=== PATIENT | male | born 1960 | race African-American/Black ===

== ENCOUNTER 2016-10-05 09:55 | Day surgery (SDC) | payer OTHER ==
[2016-10-04 12:01] VITALS: BMI 24.7
[~2016-10-05] VITALS: Ht 177.8 cm; Wt 78.6 kg
[2016-10-05] VITALS (13 sets, daily range): BP systolic 118–144; BP diastolic 76–105; PULSE 57–70; RESP 15–43; Ht 177.8 cm; Wt 78.6 kg
[~2016-10-05 09:55] MED LIST: AMLO1CAP15 PO; ASPI-664 PO; ATOR80TA75 PO; CEFU500T45 PO; CLOP75TA27 PO; FER325 PO; FURO20TA3 PO; HYDR-3605 PO; ISOS30TA5 PO; Lipitor PO; METO-407 PO; NIT4 SL; OMEP20CA16 PO; ONDA8TAB83 PO; SITA100T8 PO; VIT D3 PO
[2016-10-05] MEDS ORDERED: CIPROFLOXACIN 400MG/D5W 200 ML IVPB ONE (11:00)
[2016-10-05] MEDS ORDERED: AMLO1CAP2 PO (11:48)
--- NOTE | 2016-10-05 12:16 | HPN ---
Date/Time of Note Date/Time of Note DATE: 10/05/16 TIME: 12:15 Interval H&P Admission Note Pt. seen H&P reviewed: No system changes MARTY LAMAS MD Oct 05, 2016 12:16
[2016-10-05] MEDS ORDERED: MIDAZOLAM 1 MG/ML 2 ML INJ ONE (12:40)
[2016-10-05] MEDS ORDERED: ROCURONIUM 50 MG INJ ONE (12:40)
[2016-10-05] MEDS ORDERED: PROPOFOL 20 ML ONE (12:40)
[2016-10-05] MEDS ORDERED: FENTAnyl 50 MCG/ML VIAL ONE (12:40)
[2016-10-05] MEDS ORDERED: PHENYLephrine (100 MCG/ML) 5ML SYG ONE (13:36)
[2016-10-05] MEDS ORDERED: ONDANSETRON 4 MG INJ IV PRN ×2 (14:00→14:30)
[2016-10-05] MEDS ORDERED: HYDROCODONE/APAP (5/325) TAB PO PRN (14:00)
[2016-10-05] MEDS ORDERED: FAMOTIDINE 20 MG INJ ONE (14:16)
[2016-10-05] MEDS ORDERED: ONDANSETRON 4 MG INJ ONE (14:16)
[2016-10-05] MEDS ORDERED: DEXAMETHASONE 4 MG/ML 1 ML INJ ONE (14:16)
[2016-10-05] MEDS ORDERED: SUGAMMADEX SODIUM 200 MG/2 ML VIAL IV ONE ×2 (14:21)
[2016-10-05] MEDS ORDERED: MEPERIDINE 25 MG INJ IV PRN (14:30)
[2016-10-05] MEDS ORDERED: DIPHENHYDRAMINE 50 MG INJ IV PRN (14:30)
[2016-10-05] MEDS ORDERED: HYDROmorphONE (0.2 MG/ML) 10ML SYG IV PRN (14:30)
[2016-10-05] MEDS: HYDROmorphONE (0.2 MG/ML) 10ML SYG IV PRN ×2 (15:16→15:31)
--- NOTE | 2016-10-05 21:57 | OPR ---
DATE OF OPERATION: 10/05/2016 PREOPERATIVE DIAGNOSIS: Multiple right renal stones. POSTOPERATIVE DIAGNOSIS: Multiple right renal stones. OPERATION PERFORMED: Cystoscopy, insertion of right ureteral JJ stent and right extracorporeal shoc kwave lithotripsy. TECHNIQUE: The patient was brought to the operating room, positioned in the supine position on the lithotripsy machine table and he was then given general endotracheal anesthesia. A timeout was done . The patient was identified by his name, date, and the procedure and the side of the procedu re. The patient was given 2 grams of Ancef IV at the start of the procedure. Then, the patient was positioned in the lithotomy position. The genital area was prepped and draped in the usual sterile manner. A #21 Chadian cystoscope sheath was introduced under direct vision through the penile ureth ra all the way to the bladder. Urine was collected from the bladder for culture and sensitivity. T hen, the right ureteral orifice was identified and cannulated with a 5-Chadian open-ended ureteral ca theter and a Glidewire was passed all the way up to the kidney. Once the Glidewire was in the kidne y, the open-ended was removed and on the Glidewire, I advanced a 6-Chadian x 24 cm long JJ stent, had its proximal end curling into the kidney and the distal end curling into the bladder. Then the sco pe was removed and I inserted a 16-Chadian Crocker catheter and connected it to a drainage bag. Then, the patient was repositioned in the supine position and the large right renal stone which measured a bout 12 x 15 mm was localized on both screens of the lithotripsy machine and the shock waves were st arted at 3 volt and then gradually increased to 7 and the position of the stone was rechecked regula rly and make sure to aim at the stone. The stone appeared to be breaking well and there was also an other small stone next to it which we also treated. The patient received a total of 2400 shocks and the stone at the end seems to have broken well and scattered around the renal pelvis and the lower pole. At the end of the procedure, the patient was stable and he was transferred to recovery room i n stable and satisfactory condition. Dictated By: MARTY HENDERSON/WARREN Conf#: [id number] DID#: [id number] CC: MARTY LAMAS MD;*[facility]*
--- NOTE | 2016-10-06 10:54 | RADRPT ---
PROCEDURE: Fluoroscopy CLINICAL INDICATION: XR Cystogram in Surgery TECHNIQUE: 102.7 seconds fluoroscopic time utilized by Dr. LAMAS for procedure. 7 images/sequences of are submitted. COMPARISON: None FINDINGS: Placement of right-sided ureteral stent is demonstrated. Multiple stones are seen in the right kidn ey. IMPRESSION: Fluoroscopy utilized by Dr. LAMAS for placement of right ureteral stent. Please see procedural report for complete details. RPTAT: QQ .Rakesh Alexandre MD, MD Date Time Electronically viewed and signed by .Rakesh Alexandre MD, MD on 10/06/2016 10:54 .L/
--- NOTE | 2016-10-06 10:55 | RADRPT ---
PROCEDURE: XR Abdomen. CLINICAL INDICATION: Post ESWL. TECHNIQUE: AP abdomen x-ray. COMPARISON: None. FINDINGS: There is a right-sided ureteral stent in place. There are bilateral multiple renal calculi seen moiz suring up to 1.4 cm at the left upper pole. The bowel gas pattern is unremarkable.. The osseous st ructures are unremarkable. IMPRESSION: Right-sided ureteral stent in place. Bilateral nephrolithiasis. RPTAT: QQ .Rakesh Alexandre MD, Date Time Electronically viewed and signed by .Rakesh Alexandre MD, MD on 10/06/2016 10:55 .L/
== END 2016-10-05 16:30 | disposition home or self-care (01) ==
LOC: SDS 09:55
PROVIDERS: ATTEND Urology
DX: N20.0 Calculus of kidney (principal); I25.10 Atherosclerotic heart disease of native coronary artery without angina pectoris; Z86.718 Personal history of other venous thrombosis and embolism
CPT/HCPCS: 52356; 74000; 74430; 82962; 87086; C2617; J0744; J1100; J1170; J2175; J2250; J2370; J2405; J3010; Z7512; Z7610

== ENCOUNTER 2016-12-14 11:11 | Day surgery (SDC) | payer OTHER ==
[2016-12-13 14:20] VITALS: BMI 25.3
[2016-12-14] VITALS (18 sets, daily range): BP systolic 113–158; BP diastolic 73–94; PULSE 63–82; RESP 10–25; Ht 177.8 cm; Wt 72.0 kg
[~2016-12-14] VITALS: Ht 177.8 cm; Wt 72.0 kg
[~2016-12-14 11:11] MED LIST changes: -AMLO1CAP15 PO; +AMLO1CAP2 PO; -CEFU500T45 PO; +CIPROFLOXACIN 400 MG in D5W 200 ML IVPB SCH; -CLOP75TA27 PO; -FER325 PO; -FURO20TA3 PO; -Lipitor PO; -ONDA8TAB83 PO
[2016-12-14] MEDS ORDERED: FENTAnyl 50 MCG/ML VIAL ONE (12:16)
[2016-12-14] MEDS ORDERED: MIDAZOLAM 1 MG/ML 2 ML INJ ONE (12:16)
[2016-12-14] MEDS ORDERED: ONDANSETRON 4 MG INJ IV PRN (12:30)
[2016-12-14] MEDS ORDERED: hydrALAzine 20 MG INJ IV PRN (12:30)
[2016-12-14] MEDS ORDERED: METOCLOPRAMIDE 10 MG INJ IV PRN (12:30)
[2016-12-14] MEDS ORDERED: FENTAnyl 50 MCG/ML VIAL IV PRN ×2 (12:30)
[2016-12-14] MEDS ORDERED: HYDROmorphONE (0.2 MG/ML) 10ML SYG IV PRN ×2 (12:30)
[2016-12-14] MEDS ORDERED: LABETALOL HCL 20MG INJ IV PRN (12:30)
[2016-12-14] MEDS ORDERED: LISI20TA11 PO (12:42)
[2016-12-14] MEDS ORDERED: FURO20TA3 PO (12:42)
--- NOTE | 2016-12-14 12:46 | HPN ---
Date/Time of Note Date/Time of Note DATE: 12/14/16 TIME: 12:46 Interval H&P Admission Note Pt. seen H&P reviewed: No system changes MARTY LAMAS MD Dec 14, 2016 12:46
[2016-12-14] MEDS ORDERED: DEXAMETHASONE 4 MG/ML 1 ML INJ ONE (12:59)
[2016-12-14] MEDS ORDERED: PROPOFOL 20 ML ONE (12:59)
[2016-12-14] MEDS ORDERED: ACETAMINOPHEN 1000MG/100ML IV 100 ML ONE (12:59)
[2016-12-14] MEDS ORDERED: ONDANSETRON 4 MG INJ ONE (12:59)
[2016-12-14] MEDS ORDERED: METOCLOPRAMIDE 10 MG INJ ONE (13:00)
[2016-12-14] MEDS ORDERED: CA CHLORIDE 10% 10 ML SYRINGE ONE (13:06)
[2016-12-14] MEDS ORDERED: POTASSIUM CHLORIDE 50 ML ONE (13:14)
[2016-12-14] MEDS ORDERED: morphine 10 MG INJ ONE (14:06)
[2016-12-14] MEDS ORDERED: FAMOTIDINE 20 MG INJ ONE (14:06)
[2016-12-14] MEDS ORDERED: MEPERIDINE 100 MG INJ ONE (14:13)
--- NOTE | 2016-12-14 14:49 | OPR ---
Date/Time of Note Date/Time of Note DATE: 12/14/16 TIME: 14:37 Operative Report Procedure Date: Dec 14, 2016 Preoperative Diagnosis Left renal stones, status post ESWL to right kidney stones and insertion of right ureteral JJ stent Postoperative Diagnosis Left renal stones, status post ESWL to right kidney stones and insertion of right ureteral JJ stent ,the right ureteral JJ stent was calcified over the proximal curl requiring extracorporeal shockwave lithotripsy to be able to remove it Operation Performed Cystoscopy, extracorporeal shockwave lithotripsy to the proximal curl of the right ureteral JJ stent then removal and replacement of the right ureteral JJ stent size 6 Faroese by 24 cm long Surgeon: MARTY LAMAS MD Anesthesia Type: general Anesthesiologist: ROBERT TOLLIVER CRNA Estimated Blood Loss: 0 - 10 ml's Specimens Right ureteral JJ stent Pt Condition Post Procedure: stable Indications Left renal stones, status post ESWL to right kidney stones and insertion of right ureteral JJ stent Operative\Procedure Findings Cystoscopy, extracorporeal shockwave lithotripsy to the proximal curl of the right ureteral JJ stent then removal and replacement of the right ureteral JJ stent size 6 Faroese by 24 cm long Procedure Description The patient was brought to the operating room and given general anesthesia. He was given 400 mg of Cipro IV at the start of the procedure. Patient was positioned in the lithotomy position. The genital area was prepped and draped in the usual sterile manner. Timeout was done the patient was identified by his name the procedure and his birthdate. #21 Faroese cystoscope sheath was introduced under direct vision through the penile urethra all the way to the bladder. Fluoroscopy was then done and the distal curl of the right ureteral JJ stent was grasped with the grasper and under fluoroscopy was pulled on it and to try to pull it out however the proximal curl that was in the kidney would not uncover and as the stent came in the upper ureter it would not uncurl and therefore would not be able to pull it out. The distal curl however was able to be brought out to the urethral meatus. I tried to passing a zip wire into the lumen of the JJ stent but it would not go in because the lumen of the stent itself is also calcified. I did cut the distal curl and then try to pass the zip wire again through the lumen and that would not advance what I was hoping if I could pass the a zip wire all the way in I could make the stent straight in the proximal cur. However since that was not successful then I decided to do extracorporeal shockwave lithotripsy to the proximal curl in the upper ureter. We did do the ESWL and as we progressed I did hold the distal end of the stent and pulled on it and then it came out intact. I then repeated the cystoscopy and there was some bleeding from the right ureter and I I did pass a Glidewire into the right ureter did go up but in the proximal part it was bouncing back ,I then advanced the open ended on the Glidewire and was able to get the Glidewire all the way up to the kidney therefore I decided to put a new JJ stent to make sure that the kidney drains well and no stone fragments block the ureter. I removed the open ended and on the Glidewire I passed a 6 Faroese by 24 cm long JJ stent had its proximal and curling into the kidney and the distal end curling into the bladder the distal end is connected to a string that was taped on the penis was 2 pieces of Tegaderm patient tolerated the procedure well and was transferred to recovery room in stable and satisfactory condition I did not do any procedure on the left side considering as to what is happening on the right side we will have to try that another day or consider doing a percutaneous nephrostolithotomy I will discuss that with the patient when he comes to the office later on. MARTY LAMAS MD Dec 14, 2016 14:49
[2016-12-14] MEDS ORDERED: HYDROCODONE/APAP (5/325) TAB PO PRN (15:00)
--- NOTE | 2016-12-14 20:27 | RADRPT ---
PROCEDURE: X-ray fluoroscopy guidance CLINICAL INDICATION: ESWL. TECHNIQUE: Fluoroscopic guidance was utilized for an intraoperative procedure. Fluoro time: 250.4 seconds Number of images/sequences: 3 COMPARISON: None available FINDINGS: Right ureteral stent was placed. The osseous structures are normal. The visualized bowel pattern i s normal. No other abnormality is identified. IMPRESSION: 1. X-ray fluoroscopic guidance utilized for intraoperative procedure. 2. Right ureteral stent placed. RPTAT: HMJB .Gustavo Lam MD, Date Time Electronically viewed and signed by .Gustavo Lam MD, on 12/14/2016 20:27 .B/
== END 2016-12-14 17:07 | disposition home or self-care (01) ==
LOC: SDS 11:11
PROVIDERS: ATTEND Urology
DX: N20.0 Calculus of kidney (principal); T83.193A Other mechanical complication of other urinary stent, initial encounter; I25.10 Atherosclerotic heart disease of native coronary artery without angina pectoris; I10 Essential (primary) hypertension; Y83.9 Surgical procedure, unspecified as the cause of abnormal reaction of the patient, or of later complication, without mention of misadventure at the time of the procedure
CPT/HCPCS: 50590; 52332; 74430; 82962; 87086; 88300; C2617; J0131; J1100; J1170; J2175; J2250; J2270; J2405; J2765; J3010; J3480; Z7512; Z7610

== ENCOUNTER 2017-02-15 10:29 | Inpatient (IN) | payer OTHER ==
[~2017-02-15] VITALS: Ht 177.8 cm; Wt 73.6 kg
[2017-02-15] VITALS (18 sets, daily range): BP systolic 106–141; BP diastolic 69–89; PULSE 58–72; RESP 12–24; Ht 177.8 cm; Wt 73.6 kg
[~2017-02-15 10:29] MED LIST changes: -CIPROFLOXACIN 400 MG in D5W 200 ML IVPB SCH; +FURO20TA3 PO; +LISI20TA11 PO
[2017-02-15] MEDS ORDERED: CEFTRIAXONE 1 GM/NS 50 ML IVPB ONE (10:30)
[2017-02-15] MEDS ORDERED: METO-336 PO (11:18)
[2017-02-15] MEDS ORDERED: HYDR-902 PO (11:19)
[2017-02-15] MEDS ORDERED: CLOP75TA27 PO (11:20)
[2017-02-15] MEDS ORDERED: AMLO1CAP15 PO (11:21)
[2017-02-15] MEDS ORDERED: CHOL500010 PO (11:21)
[2017-02-15] MEDS ORDERED: IOHEXOL 300MG/ML 30 ML BTL ONE ×2 (12:23→14:32)
--- NOTE | 2017-02-15 12:27 | HPN ---
Date/Time of Note Date/Time of Note DATE: 02/15/17 TIME: 12:26 Interval H&P Admission Note Pt. seen H&P reviewed: No system changes MARTY LAMAS MD Feb 15, 2017 12:27
[2017-02-15] MEDS ORDERED: MIDAZOLAM 1 MG/ML 2 ML INJ ONE (12:30)
[2017-02-15] MEDS ORDERED: morphine SULFATE/PF (10 MG/10 ML) INJ ONE (12:30)
[2017-02-15] MEDS ORDERED: PROPOFOL 20 ML ONE (12:30)
[2017-02-15] MEDS ORDERED: FENTAnyl 50 MCG/ML VIAL ONE (12:34)
[2017-02-15] MEDS ORDERED: LIDOCAINE 1% (MDV) 20 ML INJ ONE (12:34)
--- NOTE | 2017-02-15 15:23 | RADRPT ---
PROCEDURE: Intraoperative imaging of the abdomen and pelvis with fluoroscopy. CLINICAL INDICATION: Left renal calculi. Flank pain. Intraoperative. TECHNIQUE: 15 images of the abdomen and pelvis were obtained in the operating room with an image i ntensifier. No radiologist was in attendance. 55.7 seconds of fluoroscopy time was used. COMPARISON: Abdomen radiograph dated 10/05/2016. FINDINGS: Images demonstrate placement of a balloon-tip catheter in the ureter with the balloon inflated in th e proximal left ureter just inferior to the left ureteropelvic junction. Contrast was injected into the left intrarenal collecting system. There are calculi in the upper and lower pole calyces. IMPRESSION: 1. Satisfactory intraoperative imaging of the abdomen and pelvis. 2. Images demonstrate placement of a balloon-tip catheter in the ureter with the balloon inflated i n the proximal left ureter. RPTAT: QQ .Amadou Aranda MD, Date Time Electronically viewed and signed by .Amadou Aranda MD, on 02/15/2017 15:23 .R/
[2017-02-15] MEDS ORDERED: ONDANSETRON 4 MG INJ ONE (16:31)
[2017-02-15] MEDS ORDERED: FAMOTIDINE 20 MG INJ ONE (16:31)
[2017-02-15] MEDS ORDERED: SUGAMMADEX SODIUM 200 MG/2 ML VIAL IV ONE (16:43)
--- NOTE | 2017-02-15 17:09 | RADRPT ---
PROCEDURE: Intraoperative left renal percutaneous access for placement of 30-Bruneian sheath, left n ephrostogram, and left nephrostomy tube placement. CLINICAL INDICATION: Left kidney stones. Left flank pain. TECHNIQUE: Prior to the procedure, informed consent was obtained from the patient. Risks including bleeding an d infection were explained to the patient. The patient understood and was willing to proceed. A pr ocedural pause was performed. The patient's name, date of , and procedure to be performed were verified. Prior to the procedure, Dr. Castro inserted a retrograde left ureteral catheter with a balloon tip just below the left ureteropelvic junction. The balloon was inflated and contrast was infused into the catheter in a retrograde fashion such that the left renal pelvis and collecting system were dist ended. Using fluoroscopic guidance, a 6-Bruneian Yueh needle was advanced into the left lower pole calyx. Th e tip was confirmed to be in position with fluoroscopic guidance. The inner cannula was removed celia ving the plastic sheath in position. A guidewire was advanced through the plastic sheath into the l eft renal pelvis. Using fluoroscopic guidance, the guidewire was advanced through the left ureteral pelvic junction into the left ureter. Following this, the Yueh catheter was removed leaving the michael dewire in position. The dual-lumen catheter was advanced over the guidewire into the ureter. A sec ond safety 0.035-inch Amplatz guide wire was then advanced through the dual-lumen catheter into the ureter such that two guidewires were present in the left ureter. The dual-lumen catheter was remove d and the Amplatz guidewire was then used for dilatation. A 10 mm renal dilation balloon was then a dvanced over the Amplatz guidewire such that the tip was present in the renal pelvis. The balloon was inflated to 12 atmospheres under fluoroscopic guidance. The 30 Bruneian sheath was then advanced over the balloon into the renal pelvis. The balloon dilator was then deflated and removed leaving t he sheath in place within the renal pelvis. Dr. Castro then inserted the rigid nephroscope, which then confirmed the position of the sheath within the renal pelvis. Dr. Castro then performed the percutaneous nephrolithotomy. Following the nephrolithotomy, a 24 Bruneian Malecot nephrostomy tube was inserted as follows: The sh eath was removed leaving the guidewires in place. The 24 Bruneian Malecot catheter was advanced over the Amplatz guidewire such that the tip was in satisfactory position within the renal pelvis. The M alecot catheter also had a 7-Bruneian ureteral catheter which was advanced such that the tip was in th e mid portion of the left ureter as a stent. The guidewires were then removed. The catheter was se cured to the patient's skin with 2-0 monofilament. The position was confirmed with a nephrostogram with 30 ml of iodinated contrast injected though the Malecot catheter. The nephrostogram demonstrates the tube in good position. A total of 211 seconds of fluoroscopy time was used. COMPARISON: Intraoperative imaging done earlier the same day. FINDINGS: The initial images demonstrate the balloon-tip catheter in the proximal left ureter. Subsequent imag es demonstrate puncture of the left lower pole lakhwinder and 2 guide wires in the left ureter. Subsequen t images demonstrate inflation of the dilation balloon and placement of the sheath and the left lowe r pole lakhwinder. The final nephrostogram images demonstrate the nephrostomy tube in satisfactory positi on. IMPRESSION: 1. Satisfactory renal access and placement of 30-Bruneian sheath in the lower pole lakhwinder of the left kidney. 2. Subsequent placement of nephrostomy tube in the left kidney. 3. Nephrostogram demonstrates the left nephrostomy tube in satisfactory position. RPTAT: QQ .Amadou Aranda MD, MD Date Time Electronically viewed and signed by .Amadou Aranda MD, MD on 02/15/2017 17:08 .R/
[2017-02-15] MEDS ORDERED: HYDROmorphONE 0.5 MG/0.5 ML SYG IV PRN (17:30)
[2017-02-15] MEDS ORDERED: ONDANSETRON 4 MG INJ IV PRN ×2 (17:30)
[2017-02-15] MEDS ORDERED: ZOLPIDEM 5 MG TAB PO PRN (17:30)
[2017-02-15] MEDS ORDERED: DIPHENHYDRAMINE 50 MG INJ IV PRN (17:30)
[2017-02-15] MEDS ORDERED: NALBUPHINE HCL (10 MG/1 ML) INJ IV PRN (17:30)
[2017-02-15] MEDS ORDERED: TRIMETHOBENZAMIDE 100 MG/ML VIAL IM PRN (17:30)
[2017-02-15] MEDS ORDERED: NALOXONE (0.4 MG/ML) INJ IV PRN (17:30)
--- NOTE | 2017-02-15 17:49 | OPR ---
Date/Time of Note Date/Time of Note DATE: 02/15/17 TIME: 17:35 Operative Report Procedure Date: Feb 15, 2017 Preoperative Diagnosis Left renal stones Postoperative Diagnosis Left renal stones Operation/Procedure Performed Cystoscopy and insertion of left ureteral catheter was an occluding balloon, left percutaneous nephrostolithotomy. established the access, and the placement of the nephrostomy tube at the end. Dr. LAMAS did the percutaneous nephrostolithotomy and the cystoscopy Surgeon see signature line Air Conditioning Technician None Anesthesia Type: general Anesthesiologist: ALEX CAMACHO DO Estimated Blood Loss: 250 - 300 ml's Transfusion none Specimen Left kidney stone fragments Grafts/Implants none Tubes/Drains Left nephrostomy tube, Crocker catheter Complications none Pt Condition Post Procedure: stable Disposition: PACU Indications Multiple left renal stones Procedure Description The patient was brought to the operating room and given general anesthesia after he was given spinal anesthesia with Duramorph. Timeout was done, the patient was identified by his name, birthdate ,the procedure and the side of the procedure. The patient was then given 1 g of ceftriaxone IV. The patient was positioned in the lithotomy position. The genital area was prepped and draped in the usual sterile manner. #21 Italian cystoscope sheath was introduced under direct vision through the penile urethra all the way to the bladder. The left ureteral orifice was identified and then cannulated with the 5 Italian ureteral catheter and under fluoroscopy the catheter was advanced up to the left kidney.A retrograde pyelogram was done and the collecting system on the left side was visualized. The tip of the ureteral catheter was then brought down to below the ureteropelvic junction and the occluding balloon was inflated with 1.2 mL of contrast material. The patient then had a Crocker catheter inserted and the ureteral catheter taped onto it so it would not slide down. Then the patient was moved to the stretcher and then put back on the operating table but this time in a prone position. He was padded to make sure no compression on any vital part of his body. The back was then prepped and draped for the percutaneous nephrostolithotomy. At that time came in and did the access for the procedure. He will dictate that part of the procedure. Then I proceeded and did the nephroscopy, there was some bleeding initially but eventually I was able to direct the scope to were the upper pole of the kidney and I was able to see the larger stone in the upper pole calyx. Then the stone was broken and suctionned and I kept doing the same till the upper pole stones were all removed then I turned the scope down toward the lower pole and I was able to reach the lower pole calyx, visualize the stone and break it and remove the stone fragments as well. The patient still had 2 small stones were the upper pole of the kidney in different calyces. At that moment came back and inserted the nephrostomy tube and he will also dictate that part. The patient was then moved onto the stretcher and transferred to the recovery room in a stable and satisfactory condition. MARTY LAMAS MD Feb 15, 2017 17:49
--- NOTE | 2017-02-15 18:14 | CONS ---
Date/Time of Note Date/Time of Note DATE: 02/15/17 TIME: 18:13 Assessment/Plan Assessment/Plan Additional Assessment/Plan 56 yo M with pmhx CAD, HTN, DM, kidney stones admitted for overnight monitoring following an elective cysto with L perc nephrostomy tube for kidney stones, hospitalist service consulted for medical management #CAD sp stent >12 mos ago: cont asa, hold plavix until ok'd by #DM1: SSI, a1c. hold home PO meds #HTN: cont home meds #misc: cont home vitamin D hospitalist service will cont to follow Consultation Date/Type/Reason Admit Date/Time Feb 15, 2017 at 10:29 Type of Consultation: hospitalist Reason for Consultation medical management Referring Provider: MARTY LAMAS MD Hx of Present Illness 56 yo M with pmhx CAD, DM, HTN, kidney stones admitted for observation following elective cysto with L perc nephrostomy done earlier this evening. Hospitalist service consulted for medical management. Pt seen while still in the PACU. He was still quite sleepy from his surgery and thus all clinical info obtained from chart. PMhx as above Unable to obtain soc hx, fam hx, ros, meds, all from pt 2/2 clinical condition Past Medical History per chart cardiac stent 4.16, DVT 3.16 Social History Smoking Status: Light tobacco smoker Exam/Review of Systems Vital Signs Vitals Vital Signs Date Time Temp Pulse Resp B/P Pulse Ox O2 Delivery O2 Flow Rate FiO2 02/15/17 17:32 68 18 110/73 100 Room Air 02/15/17 17:07 98.0 Exam laying in bed, nad MMM no mrg lungs clear abd soft rivas and L nephrostomy tube both with blood tinged output no rashes no edema accucheck prior to surgery 100 Results Results 24 hrs Laboratory Tests Test 02/15/17 12:18 Bedside Glucose 100 Medications Medications Current Medications Naloxone HCl (Narcan) 0.1 mg Q2M PRN IV FOR RESP RATE 8 OR LESS; Start at 17:30; Stop 02/16/17 at 17:29 Hydromorphone HCl (Dilaudid) 0.2 mg Q3H PRN IV PAIN LEVEL 1-5; Start 02/15/17 at 17:30; Stop 02/16/17 at 17:29 Hydromorphone HCl (Dilaudid) 0.4 mg Q3H PRN IV PAIN LEVEL 6-10; Start at 17:30; Stop 02/16/17 at 17:29 Diphenhydramine HCl (Benadryl) 25 mg Q6H PRN IV ITCHING; Start 02/15/17 at 17: 30; Stop 02/16/17 at 17:29 Nalbuphine HCl (Nubain) 5 mg ONCE PRN IV ITCHING; Start 02/15/17 at 17:30; Stop 02/16/17 at 17:29 Ondansetron HCl (Zofran Inj) 4 mg Q6H PRN IV NAUSEA AND/OR VOMITING; Start at 17:30; Stop 02/16/17 at 17:29 Trimethobenzamide HCl (Tigan) 200 mg Q6H PRN IM NAUSEA AND/OR VOMITING; Start 02/15/17 at 17:30; Stop 02/16/17 at 17:29 Ondansetron HCl 4 mg 4 mg Q6H PRN IV NAUSEA; Start 02/15/17 at 17:30 Ceftriaxone Sodium 50 ml @ 100 mls/hr Q24H IVPB ; Start 02/16/17 at 12:00 Sodium Chloride (1/2 NS) 1,000 ml @ 125 mls/hr Q8H IV ; Start 02/15/17 at 17: 30 Aspirin (Halfprin) 81 mg DAILY PO ; Start 02/16/17 at 09:00 Atorvastatin Calcium (Lipitor) 80 mg QHS PO ; Start 02/15/17 at 21:00 Cholecalciferol (Vitamin D) 5,000 unit DAILY PO ; Start 02/16/17 at 09:00 Clopidogrel Bisulfate (plaVIX) 75 mg DAILY PO ; Start 02/16/17 at 09:00 Furosemide (Lasix) 20 mg DAILY PO ; Start 02/16/17 at 09:00 Acetaminophen/ Hydrocodone Bitart ([place] (10/325)) 1 tab Q6 PRN PO PAIN; Start 02/15/17 at 18:00 Isosorbide Mononitrate (Imdur) 30 mg DAILY PO ; Start 02/16/17 at 09:00 Metoprolol Succinate (Toprol Xl) 100 mg BID PO ; Start 02/15/17 at 21:00 Amlodipine Besylate (Norvasc) 10 mg QHS PO ; Start 02/15/17 at 21:00 Benazepril HCl (Lotensin) 40 mg QHS PO ; Start 02/15/17 at 21:00 MANUEL ALFARO MD Feb 15, 2017 18:14
[2017-02-15] MEDS ORDERED: GLUCOSE GEL 15 GRAM TUBE BUCCAL PRN (19:00)
[2017-02-15] MEDS ORDERED: GLUCOSE GEL 15 GRAM TUBE PO PRN ×2 (19:00)
[2017-02-15] MEDS ORDERED: DEXTROSE 50% 50 ML SYRINGE IV PRN ×2 (19:00)
[2017-02-15] MEDS ORDERED: GLUCAGON 1 MG INJ IM PRN (19:00)
[2017-02-15] MEDS: SOD CHLORIDE 0.45% 1,000 ML IV SCH (20:18)
[2017-02-15] MEDS: INSULIN ASPART [NOVOLOG] 3 ML PEN SC SCH (21:00)
[2017-02-15] MEDS: AMLODIPINE 10 MG TAB PO SCH (21:00)
[2017-02-15] MEDS: HYDROmorphONE 0.5 MG/0.5 ML SYG IV PRN (22:12)
[2017-02-15] MEDS: ATORVASTATIN 80 MG TAB PO SCH (22:12)
[2017-02-15] MEDS: BENAZEPRIL 40 MG TAB PO SCH (22:14)
[2017-02-15] MEDS: HYDROCODONE/APAP (10/325) TAB PO PRN (23:53)
[2017-02-16] MEDS: METOPROLOL (XL) 100 MG TAB PO SCH ×3 (00:23→20:34)
[2017-02-16 00:52] LABS: ABNORMAL IP MESSAGE 1; BASOPHIL # 0.1 10^3/ul (0.0-0.1); BASOPHILS % 0.3 % (0.0-2.0); HEMATOCRIT 35.5 % (42.0-52.0); HEMOGLOBIN 11.6 g/dl (14.0-18.0); LYMPHOCYTES # 0.5 10^3/ul (0.8-2.9); LYMPHOCYTES % 3.7 % (15.0-51.0); MEAN CORPUSCULAR HEMOGLOBIN 30.4 pg (29.0-33.0); MEAN CORPUSCULAR HGB CONC 32.7 g/dl (32.0-37.0); MEAN CORPUSCULAR VOLUME 92.9 fl (82.0-101.0); MEAN PLATELET VOLUME 11.6 fl (7.4-10.4); MONOCYTE # 0.5 10^3/ul (0.3-0.9); MONOCYTES % 3.5 % (0.0-11.0); NEUTROPHIL # 13.4 10^3/ul (1.6-7.5); NEUTROPHILS % 92.1 % (39.0-77.0); PLATELET COUNT 210 10^3/UL (140-415); POSITIVE DIFF @See below; RED BLOOD COUNT 3.82 10^6/ul (4.70-6.10); RED CELL DISTRIBUTION WIDTH 14.4 % (11.5-14.5); WHITE BLOOD COUNT 14.5 10^3/ul (4.8-10.8)
[2017-02-16 01:26] LABS: CALCIUM 8.4 mg/dl (8.4-10.2); CREATININE 1.34 mg/dl (0.61-1.24); POTASSIUM 3.3 mmol/L (3.5-5.1)
[2017-02-16] MEDS: SOD CHLORIDE 0.45% 1,000 ML IV SCH ×6 (01:30→22:21)
[2017-02-16] MEDS: ACCU-CHEK XX SCH (02:00)
[2017-02-16] MEDS ORDERED: ACCU-CHEK XX SCH (02:00)
[2017-02-16] MEDS: HYDROmorphONE 0.5 MG/0.5 ML SYG IV PRN ×3 (04:24→12:52)
[2017-02-16] MEDS: HYDROCODONE/APAP (10/325) TAB PO PRN ×2 (06:08→16:53)
[2017-02-16 06:27] LABS: ABNORMAL IP MESSAGE 1; BASOPHILS % 0.2 % (0.0-2.0); HEMATOCRIT 33.8 % (42.0-52.0); HEMOGLOBIN 10.6 g/dl (14.0-18.0); LYMPHOCYTES # 0.6 10^3/ul (0.8-2.9); LYMPHOCYTES % 4.6 % (15.0-51.0); MEAN CORPUSCULAR HEMOGLOBIN 28.9 pg (29.0-33.0); MEAN CORPUSCULAR HGB CONC 31.4 g/dl (32.0-37.0); MEAN CORPUSCULAR VOLUME 92.1 fl (82.0-101.0); MEAN PLATELET VOLUME 11.8 fl (7.4-10.4); MONOCYTE # 0.5 10^3/ul (0.3-0.9); MONOCYTES % 3.9 % (0.0-11.0); NEUTROPHIL # 11.3 10^3/ul (1.6-7.5); PLATELET COUNT 199 10^3/UL (140-415); POSITIVE DIFF @See below; RED BLOOD COUNT 3.67 10^6/ul (4.70-6.10); RED CELL DISTRIBUTION WIDTH 14.4 % (11.5-14.5); WHITE BLOOD COUNT 12.4 10^3/ul (4.8-10.8)
[2017-02-16 06:42] LABS: CALCIUM 8.4 mg/dl (8.4-10.2); CREATININE 1.31 mg/dl (0.61-1.24); POTASSIUM 3.5 mmol/L (3.5-5.1)
[2017-02-16 07:37] VITALS: BP 128/79; RESP 20
[2017-02-16] MEDS: INSULIN ASPART [NOVOLOG] 3 ML PEN SC SCH ×4 (07:50→20:34)
[2017-02-16] MEDS ORDERED: CLOPIDOGREL 75 MG TAB PO SCH (09:00)
--- NOTE | 2017-02-16 09:50 | PN ---
Date/Time of Note Date/Time of Note DATE: 02/16/17 TIME: 09:47 Assessment/Plan VTE Prophylaxis VTE Prophylaxis Intervention: SCD's Lines/Catheters [facility] Saline Lock Urinary Cath still in place: No Assessment/Plan Chief Complaint/Hosp Course 56-year-old male status post left percutaneous nephrostolithotomy, he is doing well the nephrostomy tube is draining bloody urine and that is expected, it will gradually clear up. The Crocker catheter is draining light pink urine and that will be removed. We will continue the patient on antibiotic try to ambulate him and manage his pain. Problems: Subjective 24 Hr Interval Summary Constitutional: no complaints Respiratory: no complaints Gastrointestinal: no complaints Genitourinary: other (Nephrostomy tube and a Crocker catheter) Musculoskeletal: no complaints Exam/Review of Systems Vital Signs Vitals Vital Signs Date Time Temp Pulse Resp B/P Pulse Ox O2 Delivery O2 Flow Rate FiO2 02/16/17 07:37 98.3 66 20 128/79 100 02/15/17 18:17 Room Air Intake and Output 02/15/17 02/15/17 02/16/17 15:00 23:00 07:00 Intake Total 2050 ml 2565 ml Output Total 400 ml 380 ml 950 ml Balance 1650 ml -380 ml 1615 ml Exam Constitutional: alert Psych: no complaints Respiratory: normal air movement Gastrointestinal: soft Genitourinary - Male: other (Crocker catheter draining light pink urine, nephrostomy tube draining bloody urine.) Extremities: No calf tenderness Results Result Diagram: 02/16/17 0459 02/16/17 0500 Results 24 hrs Laboratory Tests Test 02/15/17 12:18 02/15/17 22:20 02/16/17 00:01 02/16/17 04:59 Bedside Glucose 100 134 White Blood Count 14.5 H 12.4 H Red Blood Count 3.82 L 3.67 L Hemoglobin 11.6 L 10.6 L Hematocrit 35.5 L 33.8 L Mean Corpuscular Volume 92.9 92.1 Mean Corpuscular Hemoglobin 30.4 28.9 L Mean Corpuscular Hemoglobin Concent 32.7 31.4 L Red Cell Distribution Width 14.4 14.4 Platelet Count 210 199 Mean Platelet Volume 11.6 H 11.8 H Neutrophils % 92.1 H 91.0 H Lymphocytes % 3.7 L 4.6 L Monocytes % 3.5 3.9 Eosinophils % 0.0 0.0 Basophils % 0.3 0.2 Nucleated Red Blood Cells % 0.0 0.0 Neutrophils # 13.4 H 11.3 H Lymphocytes # 0.5 L 0.6 L Monocytes # 0.5 0.5 Eosinophils # 0.0 0.0 Basophils # 0.1 0.0 Nucleated Red Blood Cells # 0.0 0.0 Sodium Level 142 Potassium Level 3.3 L Chloride Level 111 H Carbon Dioxide Level 22 Anion Gap 12 Blood Urea Nitrogen 16 Creatinine 1.34 H Glucose Level 130 Calcium Level 8.4 Hemoglobin A1c 5.9 Test 02/16/17 05:00 02/16/17 08:24 Sodium Level 141 Potassium Level 3.5 Chloride Level 110 Carbon Dioxide Level 23 Anion Gap 12 Blood Urea Nitrogen 16 Creatinine 1.31 H Glucose Level 129 Calcium Level 8.4 Bedside Glucose 96 Medications Medications Current Medications Naloxone HCl (Narcan) 0.1 mg Q2M PRN IV FOR RESP RATE 8 OR LESS; Start at 17:30; Stop 02/16/17 at 17:29 Hydromorphone HCl (Dilaudid) 0.2 mg Q3H PRN IV PAIN LEVEL 1-5; Start 02/15/17 at 17:30; Stop 02/16/17 at 17:29 Hydromorphone HCl (Dilaudid) 0.4 mg Q3H PRN IV PAIN LEVEL 6-10 Last administered on 02/16/17 08:47; Admin Dose 0.4 MG; Start 02/15/17 at 17:30; Stop 02/16/17 at 17:29 Diphenhydramine HCl (Benadryl) 25 mg Q6H PRN IV ITCHING; Start 02/15/17 at 17: 30; Stop 02/16/17 at 17:29 Nalbuphine HCl (Nubain) 5 mg ONCE PRN IV ITCHING; Start 02/15/17 at 17:30; Stop 02/16/17 at 17:29 Ondansetron HCl (Zofran Inj) 4 mg Q6H PRN IV NAUSEA AND/OR VOMITING Last administered on 02/15/17 20:57; Admin Dose 4 MG; Start 02/15/17 at 17:30; Stop 02/16/17 at 17:29 Trimethobenzamide HCl (Tigan) 200 mg Q6H PRN IM NAUSEA AND/OR VOMITING; Start 02/15/17 at 17:30; Stop 02/16/17 at 17:29 Ondansetron HCl 4 mg 4 mg Q6H PRN IV NAUSEA; Start 02/15/17 at 17:30 Ceftriaxone Sodium 50 ml @ 100 mls/hr Q24H IVPB ; Start 02/16/17 at 12:00 Sodium Chloride (1/2 NS) 1,000 ml @ 125 mls/hr Q8H IV Last administered on 04:19; Admin Dose 125 MLS/HR; Start 02/15/17 at 17:30 Aspirin (Halfprin) 81 mg DAILY PO ; Start 02/16/17 at 09:00 Atorvastatin Calcium (Lipitor) 80 mg QHS PO Last administered on 02/15/17 22: 12; Admin Dose 80 MG; Start 02/15/17 at 21:00 Cholecalciferol (Vitamin D) 5,000 unit DAILY PO ; Start 02/16/17 at 09:00 Furosemide (Lasix) 20 mg DAILY PO ; Start 02/16/17 at 09:00 Acetaminophen/ Hydrocodone Bitart ([place] (10/325)) 1 tab Q6 PRN PO PAIN Last administered on 02/16/17 06:08; Admin Dose 1 TAB; Start 02/15/17 at 18:00 Isosorbide Mononitrate (Imdur) 30 mg DAILY PO ; Start 02/16/17 at 09:00 Metoprolol Succinate (Toprol Xl) 100 mg BID PO Last administered on 02/16/17 00:23; Admin Dose 100 MG; Start 02/15/17 at 21:00 Amlodipine Besylate (Norvasc) 10 mg QHS PO Last administered on 02/15/17 21: 00; Admin Dose 10 MG; Start 02/15/17 at 21:00 Benazepril HCl (Lotensin) 40 mg QHS PO Last administered on 02/15/17 22:14; Admin Dose 40 MG; Start 02/15/17 at 21:00 Diagnostic Test (Pha) (Accu-Chek) 1 ea 02 XX ; Start 02/16/17 at 02:00 Miscellaneous Information 1 ea NOTE XX ; Start 02/15/17 at 19:00 Glucose (Glutose) 15 gm Q15M PRN PO DECREASED GLUCOSE; Start 02/15/17 at 19:00 Glucose (Glutose) 22.5 gm Q15M PRN PO DECREASED GLUCOSE; Start 02/15/17 at 19: 00 Dextrose (D50w Syringe) 25 ml Q15M PRN IV DECREASED GLUCOSE; Start 02/15/17 at 19:00 Dextrose (D50w Syringe) 50 ml Q15M PRN IV DECREASED GLUCOSE; Start 02/15/17 at 19:00 Glucagon (Glucagen) 1 mg Q15M PRN IM DECREASED GLUCOSE; Start 02/15/17 at 19: 00 Glucose (Glutose) 15 gm Q15M PRN BUCCAL DECREASED GLUCOSE; Start 02/15/17 at 19:00 MARTY LAMAS MD Feb 16, 2017 09:50
[2017-02-16] MEDS: CHOLECALCIFEROL 1,000 UNIT TAB PO SCH (09:51)
[2017-02-16] MEDS: ASPIRIN (EC) 81 MG TAB PO SCH (09:51)
[2017-02-16] MEDS: ISOSORBIDE MONONITRATE(SR)30 MG TAB PO SCH (09:52)
[2017-02-16] MEDS: FUROSEMIDE 20 MG TAB PO SCH (09:52)
--- NOTE | 2017-02-16 11:09 | PN ---
Date/Time of Note Date/Time of Note DATE: 02/16/17 TIME: 10:59 Assessment/Plan VTE Prophylaxis VTE Prophylaxis Intervention: SCD's Lines/Catheters IV Catheter Type (from Nrs): Saline Lock Urinary Cath still in place: No Assessment/Plan Chief Complaint/Hosp Course 56 yo M with pmhx CAD, HTN, DM, kidney stones admitted for overnight monitoring following an elective cysto with L perc nephrostomy tube for kidney stones, hospitalist service consulted for medical management #CAD sp stent >12 mos ago: cont asa Of note, pt states he is possibly not supposed to be on plavix any longer. Will attempt to call PCP Saturday #DM1: SSI, a1c. hold home PO meds #HTN: cont home meds #misc: cont home vitamin D hospitalist service will cont to follow Problems: Subjective 24 Hr Interval Summary Free Text/Dictation feels ok Exam/Review of Systems Vital Signs Vitals Vital Signs Date Time Temp Pulse Resp B/P Pulse Ox O2 Delivery O2 Flow Rate FiO2 02/16/17 07:37 98.3 66 20 128/79 100 02/15/17 18:17 Room Air Intake and Output 02/15/17 02/15/17 02/16/17 15:00 23:00 07:00 Intake Total 2050 ml 2565 ml Output Total 400 ml 380 ml 950 ml Balance 1650 ml -380 ml 1615 ml Exam nad, sitting up in bed no mrg lungs clear abd soft rivas with blood tinged output nephrostomy tube with blood tinged output as well Results Result Diagram: 02/16/17 0459 02/16/17 0500 Results 24 hrs Laboratory Tests Test 02/15/17 12:18 02/15/17 22:20 02/16/17 00:01 02/16/17 04:59 Bedside Glucose 100 134 White Blood Count 14.5 H 12.4 H Red Blood Count 3.82 L 3.67 L Hemoglobin 11.6 L 10.6 L Hematocrit 35.5 L 33.8 L Mean Corpuscular Volume 92.9 92.1 Mean Corpuscular Hemoglobin 30.4 28.9 L Mean Corpuscular Hemoglobin Concent 32.7 31.4 L Red Cell Distribution Width 14.4 14.4 Platelet Count 210 199 Mean Platelet Volume 11.6 H 11.8 H Neutrophils % 92.1 H 91.0 H Lymphocytes % 3.7 L 4.6 L Monocytes % 3.5 3.9 Eosinophils % 0.0 0.0 Basophils % 0.3 0.2 Nucleated Red Blood Cells % 0.0 0.0 Neutrophils # 13.4 H 11.3 H Lymphocytes # 0.5 L 0.6 L Monocytes # 0.5 0.5 Eosinophils # 0.0 0.0 Basophils # 0.1 0.0 Nucleated Red Blood Cells # 0.0 0.0 Sodium Level 142 Potassium Level 3.3 L Chloride Level 111 H Carbon Dioxide Level 22 Anion Gap 12 Blood Urea Nitrogen 16 Creatinine 1.34 H Glucose Level 130 Calcium Level 8.4 Hemoglobin A1c 5.9 Test 02/16/17 05:00 02/16/17 08:24 Sodium Level 141 Potassium Level 3.5 Chloride Level 110 Carbon Dioxide Level 23 Anion Gap 12 Blood Urea Nitrogen 16 Creatinine 1.31 H Glucose Level 129 Calcium Level 8.4 Bedside Glucose 96 Medications Medications Current Medications Naloxone HCl (Narcan) 0.1 mg Q2M PRN IV FOR RESP RATE 8 OR LESS; Start at 17:30; Stop 02/16/17 at 17:29 Hydromorphone HCl (Dilaudid) 0.2 mg Q3H PRN IV PAIN LEVEL 1-5; Start 02/15/17 at 17:30; Stop 02/16/17 at 17:29 Hydromorphone HCl (Dilaudid) 0.4 mg Q3H PRN IV PAIN LEVEL 6-10 Last administered on 02/16/17 08:47; Admin Dose 0.4 MG; Start 02/15/17 at 17:30; Stop 02/16/17 at 17:29 Diphenhydramine HCl (Benadryl) 25 mg Q6H PRN IV ITCHING; Start 02/15/17 at 17: 30; Stop 02/16/17 at 17:29 Nalbuphine HCl (Nubain) 5 mg ONCE PRN IV ITCHING; Start 02/15/17 at 17:30; Stop 02/16/17 at 17:29 Ondansetron HCl (Zofran Inj) 4 mg Q6H PRN IV NAUSEA AND/OR VOMITING Last administered on 02/15/17 20:57; Admin Dose 4 MG; Start 02/15/17 at 17:30; Stop 02/16/17 at 17:29 Trimethobenzamide HCl (Tigan) 200 mg Q6H PRN IM NAUSEA AND/OR VOMITING; Start 02/15/17 at 17:30; Stop 02/16/17 at 17:29 Ondansetron HCl 4 mg 4 mg Q6H PRN IV NAUSEA; Start 02/15/17 at 17:30 Ceftriaxone Sodium 50 ml @ 100 mls/hr Q24H IVPB ; Start 02/16/17 at 12:00 Sodium Chloride (1/2 NS) 1,000 ml @ 125 mls/hr Q8H IV Last administered on 04:19; Admin Dose 125 MLS/HR; Start 02/15/17 at 17:30 Aspirin (Halfprin) 81 mg DAILY PO Last administered on 02/16/17 09:51; Admin Dose 81 MG; Start 02/16/17 at 09:00 Atorvastatin Calcium (Lipitor) 80 mg QHS PO Last administered on 02/15/17 22: 12; Admin Dose 80 MG; Start 02/15/17 at 21:00 Cholecalciferol (Vitamin D) 5,000 unit DAILY PO Last administered on 09:51; Admin Dose 5,000 UNIT; Start 02/16/17 at 09:00 Furosemide (Lasix) 20 mg DAILY PO Last administered on 02/16/17 09:52; Admin Dose 20 MG; Start 02/16/17 at 09:00 Acetaminophen/ Hydrocodone Bitart ([place] (10/325)) 1 tab Q6 PRN PO PAIN Last administered on 02/16/17 06:08; Admin Dose 1 TAB; Start 02/15/17 at 18:00 Isosorbide Mononitrate (Imdur) 30 mg DAILY PO Last administered on 02/16/17 09:52; Admin Dose 30 MG; Start 02/16/17 at 09:00 Metoprolol Succinate (Toprol Xl) 100 mg BID PO Last administered on 02/16/17 00:23; Admin Dose 100 MG; Start 02/15/17 at 21:00 Amlodipine Besylate (Norvasc) 10 mg QHS PO Last administered on 02/15/17 21: 00; Admin Dose 10 MG; Start 02/15/17 at 21:00 Benazepril HCl (Lotensin) 40 mg QHS PO Last administered on 02/15/17t 22:14; Admin Dose 40 MG; Start 02/15/17 at 21:00 Diagnostic Test (Pha) (Accu-Chek) 1 ea 02 XX ; Start 02/16/17 at 02:00 Miscellaneous Information 1 ea NOTE XX ; Start 02/15/17 at 19:00 Glucose (Glutose) 15 gm Q15M PRN PO DECREASED GLUCOSE; Start 02/15/17 at 19:00 Glucose (Glutose) 22.5 gm Q15M PRN PO DECREASED GLUCOSE; Start 02/15/17 at 19: 00 Dextrose (D50w Syringe) 25 ml Q15M PRN IV DECREASED GLUCOSE; Start 02/15/17 at 19:00 Dextrose (D50w Syringe) 50 ml Q15M PRN IV DECREASED GLUCOSE; Start 02/15/17 at 19:00 Glucagon (Glucagen) 1 mg Q15M PRN IM DECREASED GLUCOSE; Start 02/15/17 at 19: 00 Glucose (Glutose) 15 gm Q15M PRN BUCCAL DECREASED GLUCOSE; Start 02/15/17 at 19:00 MANUEL ALFARO MD Feb 16, 2017 11:09
[2017-02-16] MEDS: CEFTRIAXONE 1 GM/50 ML (PMX) 50 ML IVPB SCH (13:09)
--- NOTE | 2017-02-16 15:32 | RADRPT ---
PROCEDURE: XR Abdomen. CLINICAL INDICATION: Abdomen pain. TECHNIQUE: AP supine abdomen x-ray. COMPARISON: 10/05/2016. FINDINGS: The bowel gas pattern is normal with no evidence of obstruction. A left nephrostomy tube with a stent extending down the left ureter is present. Previously noted zachariah culi in the upper right kidney are smaller. The calculus seen in the lower left kidney is no longer visualized. The right ureteral stent is no longer present. The lung bases are normal. The osseus structures are unremarkable. IMPRESSION: 1. Left nephrostomy tube with left ureteral stent in satisfactory position. 2. Smaller left renal calculi. 3. Right ureteral stent removed. RPTAT: QQ .Amadou Aranda MD, MD Date Time Electronically viewed and signed by .Amadou Aranda MD, MD on 02/16/2017 15:32 .R/
[2017-02-16 19:15] VITALS: BP 147/79; RESP 18
[2017-02-16] MEDS ORDERED: HYDROmorphONE 0.5 MG/0.5 ML SYG IV STA (20:08)
[2017-02-16] MEDS: ATORVASTATIN 80 MG TAB PO SCH (20:29)
[2017-02-16] MEDS: BENAZEPRIL 40 MG TAB PO SCH (20:32)
[2017-02-16] MEDS: AMLODIPINE 10 MG TAB PO SCH (20:33)
[2017-02-16] MEDS: HYDROmorphONE 2 MG/ML SYG IV PRN (23:26)
[2017-02-17 02:00] VITALS: BP 117/73; RESP 18
[2017-02-17] MEDS: ACCU-CHEK XX SCH (02:00)
[2017-02-17] MEDS: HYDROCODONE/APAP (10/325) TAB PO PRN ×4 (03:35→20:52)
[2017-02-17 05:25] LABS: BASOPHILS % 0.3 % (0.0-2.0); EOSINOPHILS # 0.1 10^3/ul (0.0-0.5); EOSINOPHILS % 0.7 % (0.0-7.0); HEMATOCRIT 32.7 % (42.0-52.0); HEMOGLOBIN 10.7 g/dl (14.0-18.0); LYMPHOCYTES # 1.3 10^3/ul (0.8-2.9); LYMPHOCYTES % 13.3 % (15.0-51.0); MEAN CORPUSCULAR HEMOGLOBIN 29.4 pg (29.0-33.0); MEAN CORPUSCULAR HGB CONC 32.7 g/dl (32.0-37.0); MEAN CORPUSCULAR VOLUME 89.8 fl (82.0-101.0); MEAN PLATELET VOLUME 11.5 fl (7.4-10.4); MONOCYTE # 0.8 10^3/ul (0.3-0.9); MONOCYTES % 7.6 % (0.0-11.0); NEUTROPHIL # 7.8 10^3/ul (1.6-7.5); NEUTROPHILS % 77.8 % (39.0-77.0); PLATELET COUNT 186 10^3/UL (140-415); RED BLOOD COUNT 3.64 10^6/ul (4.70-6.10); RED CELL DISTRIBUTION WIDTH 14.1 % (11.5-14.5)
[2017-02-17] MEDS: HYDROmorphONE 2 MG/ML SYG IV PRN ×2 (05:40→10:31)
[2017-02-17 05:59] LABS: CREATININE 1.02 mg/dl (0.61-1.24)
[2017-02-17] MEDS: SOD CHLORIDE 0.45% 1,000 ML IV SCH ×3 (06:38→16:26)
[2017-02-17 07:20] VITALS: BP 128/79; RESP 18
[2017-02-17] MEDS: INSULIN ASPART [NOVOLOG] 3 ML PEN SC SCH ×4 (07:50→20:46)
[2017-02-17] MEDS: ASPIRIN (EC) 81 MG TAB PO SCH (09:18)
[2017-02-17] MEDS: CHOLECALCIFEROL 1,000 UNIT TAB PO SCH (09:18)
[2017-02-17] MEDS: FUROSEMIDE 20 MG TAB PO SCH (09:19)
[2017-02-17] MEDS: METOPROLOL (XL) 100 MG TAB PO SCH ×2 (09:19→20:55)
[2017-02-17] MEDS: ISOSORBIDE MONONITRATE(SR)30 MG TAB PO SCH (09:20)
[2017-02-17] MEDS ORDERED: POTASSIUM CHLORIDE (SR) 20 MEQ TAB PO STA (09:36)
[2017-02-17] MEDS: CEFTRIAXONE 1 GM/50 ML (PMX) 50 ML IVPB SCH (12:41)
--- NOTE | 2017-02-17 12:52 | PN ---
Date/Time of Note Date/Time of Note DATE: 02/17/17 TIME: 12:49 Assessment/Plan VTE Prophylaxis VTE Prophylaxis Intervention: ambulation, SCD's Lines/Catheters IV Catheter Type (from Nrs): Peripheral IV Urinary Cath still in place: No Assessment/Plan Chief Complaint/Hosp Course 56-year-old male status post left percutaneous nephrostolithotomy, he is doing well, the nephrostomy tube is draining bloody urine which is clearer than yesterday. We will continue the patient on antibiotic try to ambulate him and manage his pain. Problems: Subjective 24 Hr Interval Summary Constitutional: no complaints Eyes: no complaints Respiratory: no complaints Cardiovascular: No chest pain Gastrointestinal: no complaints Genitourinary: flank pain Musculoskeletal: no complaints Neurologic: no complaints Exam/Review of Systems Vital Signs Vitals Vital Signs Date Time Temp Pulse Resp B/P Pulse Ox O2 Delivery O2 Flow Rate FiO2 02/17/17 07:20 98.0 60 18 128/79 99 02/15/17 18:17 Room Air Intake and Output 02/16/17 02/16/17 02/17/17 15:00 23:00 07:00 Intake Total 925 ml 3500 ml 1320 ml Output Total 100 ml 2575 ml 1560 ml Balance 825 ml 925 ml -240 ml Exam Constitutional: alert, oriented Psych: no complaints Eyes: nl conjunctiva Neck: supple Respiratory: normal air movement Cardiovascular: No edema Gastrointestinal: soft Genitourinary - Male: CVA tenderness, other (Dressing around the nephrostomy tube changed) Extremities: No calf tenderness Results Result Diagram: 02/17/17 0434 02/17/17 0434 Results 24 hrs Laboratory Tests Test 02/16/17 12:58 02/16/17 17:49 02/16/17 20:28 02/17/17 04:34 Bedside Glucose 132 116 112 White Blood Count 10.0 Red Blood Count 3.64 L Hemoglobin 10.7 L Hematocrit 32.7 L Mean Corpuscular Volume 89.8 Mean Corpuscular Hemoglobin 29.4 Mean Corpuscular Hemoglobin Concent 32.7 Red Cell Distribution Width 14.1 Platelet Count 186 Mean Platelet Volume 11.5 H Neutrophils % 77.8 H Lymphocytes % 13.3 L Monocytes % 7.6 Eosinophils % 0.7 Basophils % 0.3 Nucleated Red Blood Cells % 0.0 Neutrophils # 7.8 H Lymphocytes # 1.3 Monocytes # 0.8 Eosinophils # 0.1 Basophils # 0.0 Nucleated Red Blood Cells # 0.0 Sodium Level 141 Potassium Level 3.0 L Chloride Level 107 Carbon Dioxide Level 28 Anion Gap 9 Blood Urea Nitrogen 9 Creatinine 1.02 Glucose Level 153 Calcium Level 9.0 Test 02/17/17 08:15 02/17/17 12:40 Bedside Glucose 108 115 Medications Medications Current Medications Ondansetron HCl 4 mg 4 mg Q6H PRN IV NAUSEA; Start 02/15/17 at 17:30 Ceftriaxone Sodium 50 ml @ 100 mls/hr Q24H IVPB Last administered on 12:41; Admin Dose 100 MLS/HR; Start 02/16/17 at 12:00 Sodium Chloride (1/2 NS) 1,000 ml @ 125 mls/hr Q8H IV Last administered on 06:38; Admin Dose 125 MLS/HR; Start 02/15/17 at 17:30 Aspirin (Halfprin) 81 mg DAILY PO Last administered on 02/17/17 09:18; Admin Dose 81 MG; Start 02/16/17 at 09:00 Atorvastatin Calcium (Lipitor) 80 mg QHS PO Last administered on 02/16/17 20: 29; Admin Dose 80 MG; Start 02/15/17 at 21:00 Cholecalciferol (Vitamin D) 5,000 unit DAILY PO Last administered on 09:18; Admin Dose 5,000 UNIT; Start 02/16/17 at 09:00 Furosemide (Lasix) 20 mg DAILY PO Last administered on 02/17/17 09:19; Admin Dose 20 MG; Start 02/16/17 at 09:00 Acetaminophen/ Hydrocodone Bitart ([place] (10/325)) 1 tab Q6 PRN PO PAIN Last administered on 02/17/17 09:17; Admin Dose 1 TAB; Start 02/15/17 at 18:00 Isosorbide Mononitrate (Imdur) 30 mg DAILY PO Last administered on 02/17/17 09:20; Admin Dose 30 MG; Start 02/16/17 at 09:00 Metoprolol Succinate (Toprol Xl) 100 mg BID PO Last administered on 02/17/17 09:19; Admin Dose 100 MG; Start 02/15/17 at 21:00 Amlodipine Besylate (Norvasc) 10 mg QHS PO Last administered on 02/16/17 20: 33; Admin Dose 10 MG; Start 02/15/17 at 21:00 Benazepril HCl (Lotensin) 40 mg QHS PO Last administered on 02/16/17 20:32; Admin Dose 40 MG; Start 02/15/17 at 21:00 Diagnostic Test (Pha) (Accu-Chek) 1 ea 02 XX ; Start 02/16/17 at 02:00 Miscellaneous Information 1 ea NOTE XX ; Start 02/15/17 at 19:00 Glucose (Glutose) 15 gm Q15M PRN PO DECREASED GLUCOSE; Start 02/15/17 at 19:00 Glucose (Glutose) 22.5 gm Q15M PRN PO DECREASED GLUCOSE; Start 02/15/17 at 19: 00 Dextrose (D50w Syringe) 25 ml Q15M PRN IV DECREASED GLUCOSE; Start 02/15/17 at 19:00 Dextrose (D50w Syringe) 50 ml Q15M PRN IV DECREASED GLUCOSE; Start 02/15/17 at 19:00 Glucagon (Glucagen) 1 mg Q15M PRN IM DECREASED GLUCOSE; Start 02/15/17 at 19: 00 Glucose (Glutose) 15 gm Q15M PRN BUCCAL DECREASED GLUCOSE; Start 02/15/17 at 19:00 Hydromorphone HCl (Dilaudid) 0.5 mg Q4H PRN IV PAIN; Start 02/17/17 at 13:00; Status UNV Acetaminophen/ Hydrocodone Bitart ([place] ()) 1 tab Q4H PRN PO PAIN; Start 02/17/17 at 13:00; Status UNV MARTY LAMAS MD Feb 17, 2017 12:52
--- NOTE | 2017-02-17 13:54 | PN ---
Date/Time of Note Date/Time of Note DATE: 02/17/17 TIME: 13:53 Assessment/Plan VTE Prophylaxis VTE Prophylaxis Intervention: SCD's Lines/Catheters IV Catheter Type (from Nrs): Peripheral IV Urinary Cath still in place: No Assessment/Plan Chief Complaint/Hosp Course 56 yo M with pmhx CAD, HTN, DM, kidney stones admitted for overnight monitoring following an elective cysto with L perc nephrostomy tube for kidney stones, hospitalist service consulted for medical management #CAD sp stent >12 mos ago: cont asa Of note, pt states he is possibly not supposed to be on plavix any longer. attempt to call PCP Saturday #DM1: SSI, a1c 5.9. hold home PO meds #HTN: cont home meds #misc: cont home vitamin D hospitalist service will cont to follow Problems: Subjective 24 Hr Interval Summary Free Text/Dictation no complaints. rob mcintyre'ed by Exam/Review of Systems Vital Signs Vitals Vital Signs Date Time Temp Pulse Resp B/P Pulse Ox O2 Delivery O2 Flow Rate FiO2 02/17/17 07:20 98.0 60 18 128/79 99 02/15/17 18:17 Room Air Intake and Output 02/16/17 02/16/17 02/17/17 15:00 23:00 07:00 Intake Total 925 ml 3500 ml 1320 ml Output Total 100 ml 2575 ml 1560 ml Balance 825 ml 925 ml -240 ml Exam nad no mrg lungs clear abd soft L nephrostomy tube with blood tinged output Results Result Diagram: 02/17/17 0434 02/17/17 0434 Results 24 hrs Laboratory Tests Test 02/16/17 17:49 02/16/17 20:28 02/17/17 04:34 02/17/17 08:15 Bedside Glucose 116 112 108 White Blood Count 10.0 Red Blood Count 3.64 L Hemoglobin 10.7 L Hematocrit 32.7 L Mean Corpuscular Volume 89.8 Mean Corpuscular Hemoglobin 29.4 Mean Corpuscular Hemoglobin Concent 32.7 Red Cell Distribution Width 14.1 Platelet Count 186 Mean Platelet Volume 11.5 H Neutrophils % 77.8 H Lymphocytes % 13.3 L Monocytes % 7.6 Eosinophils % 0.7 Basophils % 0.3 Nucleated Red Blood Cells % 0.0 Neutrophils # 7.8 H Lymphocytes # 1.3 Monocytes # 0.8 Eosinophils # 0.1 Basophils # 0.0 Nucleated Red Blood Cells # 0.0 Sodium Level 141 Potassium Level 3.0 L Chloride Level 107 Carbon Dioxide Level 28 Anion Gap 9 Blood Urea Nitrogen 9 Creatinine 1.02 Glucose Level 153 Calcium Level 9.0 Test 02/17/17 12:40 Bedside Glucose 115 Medications Medications Current Medications Ondansetron HCl 4 mg 4 mg Q6H PRN IV NAUSEA; Start 02/15/17 at 17:30 Ceftriaxone Sodium 50 ml @ 100 mls/hr Q24H IVPB Last administered on 12:41; Admin Dose 100 MLS/HR; Start 02/16/17 at 12:00 Sodium Chloride (1/2 NS) 1,000 ml @ 125 mls/hr Q8H IV Last administered on 06:38; Admin Dose 125 MLS/HR; Start 02/15/17 at 17:30 Aspirin (Halfprin) 81 mg DAILY PO Last administered on 02/17/17 09:18; Admin Dose 81 MG; Start 02/16/17 at 09:00 Atorvastatin Calcium (Lipitor) 80 mg QHS PO Last administered on 02/16/17 20: 29; Admin Dose 80 MG; Start 02/15/17 at 21:00 Cholecalciferol (Vitamin D) 5,000 unit DAILY PO Last administered on 09:18; Admin Dose 5,000 UNIT; Start 02/16/17 at 09:00 Furosemide (Lasix) 20 mg DAILY PO Last administered on 02/17/17 09:19; Admin Dose 20 MG; Start 02/16/17 at 09:00 Acetaminophen/ Hydrocodone Bitart ([place] (10/325)) 1 tab Q6 PRN PO PAIN Last administered on 02/17/17 09:17; Admin Dose 1 TAB; Start 02/15/17 at 18:00 Isosorbide Mononitrate (Imdur) 30 mg DAILY PO Last administered on 02/17/17 09:20; Admin Dose 30 MG; Start 02/16/17 at 09:00 Metoprolol Succinate (Toprol Xl) 100 mg BID PO Last administered on 02/17/17 09:19; Admin Dose 100 MG; Start 02/15/17 at 21:00 Amlodipine Besylate (Norvasc) 10 mg QHS PO Last administered on 02/16/17 20: 33; Admin Dose 10 MG; Start 02/15/17 at 21:00 Benazepril HCl (Lotensin) 40 mg QHS PO Last administered on 02/16/17 20:32; Admin Dose 40 MG; Start 02/15/17 at 21:00 Diagnostic Test (Pha) (Accu-Chek) 1 ea 02 XX ; Start 02/16/17 at 02:00 Miscellaneous Information 1 ea NOTE XX ; Start 02/15/17 at 19:00 Glucose (Glutose) 15 gm Q15M PRN PO DECREASED GLUCOSE; Start 02/15/17 at 19:00 Glucose (Glutose) 22.5 gm Q15M PRN PO DECREASED GLUCOSE; Start 02/15/17 at 19: 00 Dextrose (D50w Syringe) 25 ml Q15M PRN IV DECREASED GLUCOSE; Start 02/15/17 at 19:00 Dextrose (D50w Syringe) 50 ml Q15M PRN IV DECREASED GLUCOSE; Start 02/15/17 at 19:00 Glucagon (Glucagen) 1 mg Q15M PRN IM DECREASED GLUCOSE; Start 02/15/17 at 19: 00 Glucose (Glutose) 15 gm Q15M PRN BUCCAL DECREASED GLUCOSE; Start 02/15/17 at 19:00 Hydromorphone HCl (Dilaudid) 0.5 mg Q4H PRN IV PAIN; Start 02/17/17 at 13:00 Acetaminophen/ Hydrocodone Bitart ([place] (10/325)) 1 tab Q4H PRN PO PAIN; Start 02/17/17 at 13:00 MANUEL ALFARO MD Feb 17, 2017 13:54
[2017-02-17] MEDS: HYDROmorphONE 0.5 MG/0.5 ML SYG IV PRN ×3 (15:04→23:02)
[2017-02-17 15:57] VITALS: BP 127/79; RESP 18
[2017-02-17 19:10] VITALS: BP 124/79; RESP 20
[2017-02-17] MEDS: AMLODIPINE 10 MG TAB PO SCH (20:54)
[2017-02-17] MEDS: ATORVASTATIN 80 MG TAB PO SCH (20:54)
[2017-02-17] MEDS: BENAZEPRIL 40 MG TAB PO SCH (20:55)
[2017-02-18] MEDS: SOD CHLORIDE 0.45% 1,000 ML IV SCH ×3 (00:36→17:54)
[2017-02-18] MEDS: HYDROCODONE/APAP (10/325) TAB PO PRN ×5 (01:58→19:11)
[2017-02-18] MEDS: ACCU-CHEK XX SCH (01:59)
[2017-02-18 02:00] VITALS: BP 132/81; RESP 18
[2017-02-18] MEDS: HYDROmorphONE 0.5 MG/0.5 ML SYG IV PRN ×3 (05:37→13:28)
[2017-02-18 07:00] VITALS: BP 118/80; RESP 18
[2017-02-18] MEDS: INSULIN ASPART [NOVOLOG] 3 ML PEN SC SCH ×4 (07:50→21:00)
[2017-02-18] MEDS: ASPIRIN (EC) 81 MG TAB PO SCH (08:35)
[2017-02-18] MEDS: CHOLECALCIFEROL 1,000 UNIT TAB PO SCH (08:36)
[2017-02-18] MEDS: FUROSEMIDE 20 MG TAB PO SCH (08:36)
[2017-02-18] MEDS: ISOSORBIDE MONONITRATE(SR)30 MG TAB PO SCH (08:36)
[2017-02-18] MEDS: METOPROLOL (XL) 100 MG TAB PO SCH ×2 (08:37→20:14)
--- NOTE | 2017-02-18 12:19 | CONS ---
Date/Time of Note Date/Time of Note DATE: 02/18/17 TIME: 12:12 Consult Date/Type/Reason Admit Date/Time Feb 15, 2017 at 10:29 Initial Consult Date Type of Consultation: hospitalist Ordering Provider: MARTY LAMAS MD Subjective No acute events overnight. Objective Vital Signs Date Time Temp Pulse Resp B/P Pulse Ox O2 Delivery O2 Flow Rate FiO2 02/18/17 07:00 98.4 64 18 118/80 98 02/15/17 18:17 Room Air Intake and Output 02/17/17 02/17/17 02/18/17 15:00 23:00 07:00 Intake Total 50 ml 2340 ml 2040 ml Output Total 2400 ml 2500 ml Balance 50 ml -60 ml -460 ml Exam nad no mrg lungs clear abd soft L nephrostomy tube with blood tinged output Results/Medications Result Diagram: 02/17/17 0434 02/17/17 0434 Results 24 hrs Laboratory Tests Test 02/17/17 12:40 02/17/17 17:28 02/17/17 20:45 02/18/17 08:30 Bedside Glucose 115 132 132 151 Medications Current Medications Ondansetron HCl 4 mg 4 mg Q6H PRN IV NAUSEA; Start 02/15/17 at 17:30 Ceftriaxone Sodium 50 ml @ 100 mls/hr Q24H IVPB Last administered on 12:41; Admin Dose 100 MLS/HR; Start 02/16/17 at 12:00 Sodium Chloride (1/2 NS) 1,000 ml @ 125 mls/hr Q8H IV Last administered on 08:40; Admin Dose 125 MLS/HR; Start 02/15/17 at 17:30 Aspirin (Halfprin) 81 mg DAILY PO Last administered on 02/18/17 08:35; Admin Dose 81 MG; Start 02/16/17 at 09:00 Atorvastatin Calcium (Lipitor) 80 mg QHS PO Last administered on 02/17/17 20: 54; Admin Dose 80 MG; Start 02/15/17 at 21:00 Cholecalciferol (Vitamin D) 5,000 unit DAILY PO Last administered on 08:36; Admin Dose 5,000 UNIT; Start 02/16/17 at 09:00 Furosemide (Lasix) 20 mg DAILY PO Last administered on 02/18/17 08:36; Admin Dose 20 MG; Start 02/16/17 at 09:00 Acetaminophen/ Hydrocodone Bitart ([place] ()) 1 tab Q6 PRN PO PAIN Last administered on 02/17/17 09:17; Admin Dose 1 TAB; Start 02/15/17 at 18:00 Isosorbide Mononitrate (Imdur) 30 mg DAILY PO Last administered on 02/18/17 08:36; Admin Dose 30 MG; Start 02/16/17 at 09:00 Metoprolol Succinate (Toprol Xl) 100 mg BID PO Last administered on 02/18/17 08:37; Admin Dose 100 MG; Start 02/15/17 at 21:00 Amlodipine Besylate (Norvasc) 10 mg QHS PO Last administered on 02/17/17 20: 54; Admin Dose 10 MG; Start 02/15/17 at 21:00 Benazepril HCl (Lotensin) 40 mg QHS PO Last administered on 02/17/17 20:55; Admin Dose 40 MG; Start 02/15/17 at 21:00 Diagnostic Test (Pha) (Accu-Chek) 1 ea 02 XX ; Start 02/16/17 at 02:00 Miscellaneous Information 1 ea NOTE XX ; Start 02/15/17 at 19:00 Glucose (Glutose) 15 gm Q15M PRN PO DECREASED GLUCOSE; Start 02/15/17 at 19:00 Glucose (Glutose) 22.5 gm Q15M PRN PO DECREASED GLUCOSE; Start 02/15/17 at 19: 00 Dextrose (D50w Syringe) 25 ml Q15M PRN IV DECREASED GLUCOSE; Start 02/15/17 at 19:00 Dextrose (D50w Syringe) 50 ml Q15M PRN IV DECREASED GLUCOSE; Start 02/15/17 at 19:00 Glucagon (Glucagen) 1 mg Q15M PRN IM DECREASED GLUCOSE; Start 02/15/17 at 19: 00 Glucose (Glutose) 15 gm Q15M PRN BUCCAL DECREASED GLUCOSE; Start 02/15/17 at 19:00 Hydromorphone HCl (Dilaudid) 0.5 mg Q4H PRN IV PAIN Last administered on 09:28; Admin Dose 0.5 MG; Start 02/17/17 at 13:00 Acetaminophen/ Hydrocodone Bitart ([place] ()) 1 tab Q4H PRN PO PAIN Last administered on 02/18/17t 10:43; Admin Dose 1 TAB; Start 02/17/17 at 13:00 Assessment/Plan Chief Complaint/Hosp Course A/P: 56 yo M with pmhx CAD, HTN, DM, kidney stones admitted for overnight monitoring following an elective cysto with L perc nephrostomy tube for kidney stones, hospitalist service consulted for medical management 1. L perc nephrectomy - for kidney stones - POD # 3 - f/u rec's, drainage. 2. CAD sp stentin June 2015. Pt states he has been off plavix since June 2016 , upon further questioning. - on ASA, monitor 3. DM1: SSI, a1c 5.9. hold home PO meds 4. HTN: cont home meds Problems: POLINA MELENDEZ Feb 18, 2017 12:19
[2017-02-18] MEDS: CEFTRIAXONE 1 GM/50 ML (PMX) 50 ML IVPB SCH (12:38)
--- NOTE | 2017-02-18 13:13 | PN ---
Date/Time of Note Date/Time of Note DATE: 02/18/17 TIME: 13:07 Assessment/Plan VTE Prophylaxis VTE Prophylaxis Intervention: ambulation, SCD's Lines/Catheters IV Catheter Type (from Nrsg): Peripheral IV Urinary Cath still in place: No Assessment/Plan Chief Complaint/Hosp Course 56-year-old male status post left percutaneous nephrostolithotomy, he is doing well, the nephrostomy tube is draining bloody urine which is clearer than yesterday. Is still requiring Dilaudid for his pain. We will continue the patient on antibiotic try to ambulate him and manage his pain. Hopefully we could discharge him tomorrow with home health to change his dressing Problems: Subjective 24 Hr Interval Summary Constitutional: no complaints Respiratory: no complaints Cardiovascular: no complaints Gastrointestinal: no complaints Genitourinary: bleeding, flank pain, hematuria Exam/Review of Systems Vital Signs Vitals Vital Signs Date Time Temp Pulse Resp B/P Pulse Ox O2 Delivery O2 Flow Rate FiO2 02/18/17 07:00 98.4 64 18 118/80 98 02/15/17 18:17 Room Air Intake and Output 02/17/17 02/17/17 02/18/17 15:00 23:00 07:00 Intake Total 50 ml 2340 ml 2040 ml Output Total 2400 ml 2500 ml Balance 50 ml -60 ml -460 ml Exam Constitutional: alert, oriented Psych: no complaints Neck: supple Respiratory: normal air movement Cardiovascular: No edema Gastrointestinal: soft Genitourinary - Male: CVA tenderness, other (Nephrostomy tube draining blood- tinged urine and there is some drainage around it. The dressing was changed) Extremities: No calf tenderness, No edema Results Result Diagram: 02/17/17 0434 02/17/17 0434 Results 24 hrs Laboratory Tests Test 02/17/17 17:28 02/17/17 20:45 02/18/17 08:30 02/18/17 12:14 Bedside Glucose 132 132 151 134 Medications Medications Current Medications Ondansetron HCl 4 mg 4 mg Q6H PRN IV NAUSEA; Start 02/15/17 at 17:30 Ceftriaxone Sodium 50 ml @ 100 mls/hr Q24H IVPB Last administered on t 12:38; Admin Dose 100 MLS/HR; Start 02/16/17 at 12:00 Sodium Chloride (1/2 NS) 1,000 ml @ 125 mls/hr Q8H IV Last administered on 08:40; Admin Dose 125 MLS/HR; Start 02/15/17 at 17:30 Aspirin (Halfprin) 81 mg DAILY PO Last administered on 02/18/17 08:35; Admin Dose 81 MG; Start 02/16/17 at 09:00 Atorvastatin Calcium (Lipitor) 80 mg QHS PO Last administered on 02/17/17 20: 54; Admin Dose 80 MG; Start 02/15/17 at 21:00 Cholecalciferol (Vitamin D) 5,000 unit DAILY PO Last administered on 08:36; Admin Dose 5,000 UNIT; Start 02/16/17 at 09:00 Furosemide (Lasix) 20 mg DAILY PO Last administered on 02/18/17 08:36; Admin Dose 20 MG; Start 02/16/17 at 09:00 Acetaminophen/ Hydrocodone Bitart ([place] (10/325)) 1 tab Q6 PRN PO PAIN Last administered on 02/17/17 09:17; Admin Dose 1 TAB; Start 02/15/17 at 18:00 Isosorbide Mononitrate (Imdur) 30 mg DAILY PO Last administered on 02/18/17 08:36; Admin Dose 30 MG; Start 02/16/17 at 09:00 Metoprolol Succinate (Toprol Xl) 100 mg BID PO Last administered on 02/18/17 08:37; Admin Dose 100 MG; Start 02/15/17 at 21:00 Amlodipine Besylate (Norvasc) 10 mg QHS PO Last administered on 02/17/17 20: 54; Admin Dose 10 MG; Start 02/15/17 at 21:00 Benazepril HCl (Lotensin) 40 mg QHS PO Last administered on 02/17/17 20:55; Admin Dose 40 MG; Start 02/15/17 at 21:00 Diagnostic Test (Pha) (Accu-Chek) 1 ea 02 XX ; Start 02/16/17 at 02:00 Miscellaneous Information 1 ea NOTE XX ; Start 02/15/17 at 19:00 Glucose (Glutose) 15 gm Q15M PRN PO DECREASED GLUCOSE; Start 02/15/17 at 19:00 Glucose (Glutose) 22.5 gm Q15M PRN PO DECREASED GLUCOSE; Start 02/15/17 at 19: 00 Dextrose (D50w Syringe) 25 ml Q15M PRN IV DECREASED GLUCOSE; Start 02/15/17 at 19:00 Dextrose (D50w Syringe) 50 ml Q15M PRN IV DECREASED GLUCOSE; Start 02/15/17 at 19:00 Glucagon (Glucagen) 1 mg Q15M PRN IM DECREASED GLUCOSE; Start 02/15/17 at 19: 00 Glucose (Glutose) 15 gm Q15M PRN BUCCAL DECREASED GLUCOSE; Start 02/15/17 at 19:00 Hydromorphone HCl (Dilaudid) 0.5 mg Q4H PRN IV PAIN Last administered on 09:28; Admin Dose 0.5 MG; Start 02/17/17 at 13:00 Acetaminophen/ Hydrocodone Bitart ([place] (10/325)) 1 tab Q4H PRN PO PAIN Last administered on 02/18/17 10:43; Admin Dose 1 TAB; Start 02/17/17 at 13:00 MARTY LAMAS MD Feb 18, 2017 13:13
[2017-02-18 14:00] VITALS: BP 137/85; RESP 20
[2017-02-18 19:10] VITALS: BP 141/88; RESP 18
[2017-02-18] MEDS: ATORVASTATIN 80 MG TAB PO SCH (20:13)
[2017-02-18] MEDS: AMLODIPINE 10 MG TAB PO SCH (20:14)
[2017-02-18] MEDS: BENAZEPRIL 40 MG TAB PO SCH (20:15)
[2017-02-19] MEDS: HYDROCODONE/APAP (10/325) TAB PO PRN ×5 (00:22→17:02)
[2017-02-19] MEDS: SOD CHLORIDE 0.45% 1,000 ML IV SCH ×3 (01:32→17:30)
[2017-02-19] MEDS: ACCU-CHEK XX SCH (01:55)
[2017-02-19 02:00] VITALS: BP 129/89; RESP 18
[2017-02-19 08:02] VITALS: BP 142/86; RESP 20
[2017-02-19] MEDS: INSULIN ASPART [NOVOLOG] 3 ML PEN SC SCH ×3 (09:05→17:55)
[2017-02-19] MEDS: ASPIRIN (EC) 81 MG TAB PO SCH (09:07)
[2017-02-19] MEDS: METOPROLOL (XL) 100 MG TAB PO SCH (09:08)
[2017-02-19] MEDS: FUROSEMIDE 20 MG TAB PO SCH (09:08)
[2017-02-19] MEDS: CHOLECALCIFEROL 1,000 UNIT TAB PO SCH (09:09)
[2017-02-19] MEDS: ISOSORBIDE MONONITRATE(SR)30 MG TAB PO SCH (09:09)
[2017-02-19] MEDS ORDERED: POTASSIUM CHLORIDE (SR) 20 MEQ TAB PO STA (09:41)
--- NOTE | 2017-02-19 11:18 | PDOCDIS ---
Discharge Instructions CONDITION Patient Condition: Stable HOME CARE INSTRUCTIONS: Special Diet: Carb controlled ACTIVITY: Activity Restrictions: Slowly Increase Activity FOLLOW UP/APPOINTMENTS Follow-up Plan Please take your medications as prescribed, please follow-up with your regular doctor in the clinic in the next 1 week. POLINA MELENDEZ Feb 19, 2017 11:18
--- NOTE | 2017-02-19 12:05 | DS ---
DATE OF ADMISSION: 02/15/2017 DATE OF DISCHARGE: 02/19/2017 HOSPITAL COURSE: This is a 56-year-old male, originally admitted on 02/15/2017 and is being discharged home on 02/19/2017. The patient came in with a past medical history of hypertension, diabetes, and prior kidney stones. He had elective cystoscopy with left percutaneous nephrostomy tube placement for kidney stones. This was done by urology team. The patient tolerated the procedure well. He was followed by urology team afterwards. His vital signs were measured. They were stable over the course of hospital stay, his symptoms clinically improved. He was able to ambulate and tolerate an oral diet. After getting clearance from the urology team earlier today, after patient gets a CT scan done that he will be discharged home later this afternoon in improved condition. The patient will need to follow up with the urologist in the clinic in the next 1 week and also his primary care doctor in the clinic in the next one week. DISCHARGE MEDICATIONS: The patient will go home with the following medications: 1. [place] 10/325 1 tablet orally every 4 h daily. 2. Cipro 500 mg orally twice daily for 7 days. 3. Will also continue amlodipine/benazepril 10/41 tablet every night at bedtime. 4. Aspirin 81 mg daily. 5. Atorvastatin 80 mg every night at bedtime. 6. Vitamin D3 5000 units daily. 7. Lasix 20 mg daily. 8. Imdur 30 mg daily. 9. Toprol-XL 100 mg twice daily. 10. Nitroglycerin 0.4 mg sublingual every 5 minutes as needed. 11. Januvia 100 mg daily. FINAL DIAGNOSES: 1. Status post left-percutaneous nephrolithotomy for kidney stones, with gastrostomy tube in place. 2. Prior history of kidney stones. 3. Hypertension, essential. 4. Type 2 diabetes. 5. History of coronary artery disease, with prior stent placement over 1 year ago. SERVICE TIME: 3 times to discharge the patient in 45 minutes. Dictated By: Baudilio Law MD /anat/dana /Document#: [id number]
[2017-02-19] MEDS: CEFTRIAXONE 1 GM/50 ML (PMX) 50 ML IVPB SCH (12:55)
--- NOTE | 2017-02-19 15:16 | RADRPT ---
PROCEDURE: CT Abdomen and Pelvis without contrast. CLINICAL INDICATION: Kidney stones, pain TECHNIQUE: CT of the abdomen and pelvis was performed on a multi-detector scanner without IV contr ast. Coronal and sagittal images were reformatted from the axial data set. One or more of the foll owing dose reduction techniques were used: automated exposure control, adjustment of the mA and/or k V according to patient size, use of iterative reconstruction technique. CTDI = 8.01 mGy. DLP = 451. 77 mGy-cm. COMPARISON: X-ray, 02/19/2017 FINDINGS: The lung bases are clear. The heart size is normal, without pericardial effusion. Coronary arteria l calcifications are noted. Liver, gallbladder, biliary tree, pancreas, spleen and right adrenal gla nd are unremarkable. Left adrenal gland demonstrates a 2.5 cm benign adenoma. Obstructive 6 mm calcu kat is present within the distal right ureter (3-137), 1 cm proximal to the UVJ. There is mild right hydroureteronephrosis. Bilateral nonobstructive renal calculi are seen as well. Bilateral benign ap pearing renal cysts are noted, some which are hemorrhagic. Left-sided [place] nephrostomy catheter/u reteral stent is in place, with distal tip located in the distal left ureter. Retroperitoneal gas bu bbles are present, presumably residual postoperative changes. Small hiatal hernia is noted. The stom ach is otherwise grossly unremarkable. The aorta is of normal caliber. Aortic vascular calcifications are present. There is no retroperit padilla lymphadenopathy. The majo hepatis region is clear. No bowel obstruction, free intraperitoneal air or abscess is identified. Mild retained fecal materia l may indicate constipation. The appendix is well visualized and normal. There is no diverticulosis, diverticulitis or colitis. Small urinary bladder calculus is noted. No pelvic mass, free fluid or l ymphadenopathy is identified. The surrounding osseous structures are remarkable for degenerative enthesopathy of the spine. No os teolytic or osteoblastic lesion is detected. IMPRESSION: 1. Obstructive 6 mm calculus is present in the distal right ureter, causing mild hydroureteronephro sis. 2. Multiple bilateral nonobstructive renal calculi are seen as well. 3. Left-sided percutaneous nephrostomy catheter/ureteral stent is in place, with distal tip in the distal left ureter. There is mild left-sided hydronephrosis. Gas is present within left retroperiton eal soft tissues, presumably residual postoperative change. 4. Multiple bilateral benign appearing renal cysts are identified, several which appear hemorrhagic . 5. Small hiatal hernia is noted. 6. Mild retained fecal material may indicate constipation. RPTAT: AAQQ .Dilip Doran MD, Date Time Electronically viewed and signed by .Dilip Doran MD, on 02/19/2017 15:15 .R/
--- NOTE | 2017-02-19 15:18 | RADRPT ---
PROCEDURE: XR Abdomen. CLINICAL INDICATION: Kidney stones, pain TECHNIQUE: Two views of the abdomen are available for review. COMPARISON: X-ray, 02/16/2017 FINDINGS: Left-sided percutaneous nephrostomy catheter/ureteral stent is in place, with distal tip projecting over the region of the distal left ureter. 5 mm calcific density is again seen projecting over the l ower right pelvis, consistent with distal right ureteral calculus as seen on CT performed the same d ay. Position is grossly unchanged when compared to the prior x-ray. Multiple bilateral nonobstructiv e intrarenal calculi are noted as well. Mild retained fecal material is suggestive of constipation. There is no evidence of bowel obstruction. The osseous structures are unremarkable. IMPRESSION: 1. Left-sided percutaneous nephrostomy catheter/ureteral stent remains in place. 2. 5 mm calcific density is again seen projecting over the lower right pelvis, consistent with dist al ureteral calculus, grossly unchanged in position. 3. Multiple bilateral nonobstructive renal calculi are again noted. 4. Mild retained fecal material is suggestive of constipation. RPTAT: AAQQ .Dilip Doran MD, MD Date Time Electronically viewed and signed by .Dilip Doran MD, on 02/19/2017 15:18 .R/
--- NOTE | 2017-02-19 19:05 | PN ---
Date/Time of Note Date/Time of Note DATE: 02/19/17 TIME: 19:01 Assessment/Plan VTE Prophylaxis VTE Prophylaxis Intervention: ambulation Lines/Catheters IV Catheter Type (from [facility]): Peripheral IV Urinary Cath still in place: No Assessment/Plan Chief Complaint/Hosp Course 56-year-old male status post left percutaneous nephrostolithotomy, he is doing well, the nephrostomy tube is draining bloody urine which is clearer than yesterday. We will continue the patient on oral antibiotic, ambulate him and manage his pain. Discharge him home today on oral pain medications and Cipro and follow-up in the office in about 7-10 days. Problems: Subjective 24 Hr Interval Summary Constitutional: no complaints Eyes: no complaints ENT: no complaints Respiratory: no complaints Cardiovascular: no complaints Gastrointestinal: no complaints Genitourinary: flank pain (Is less than before) Exam/Review of Systems Vital Signs Vitals Vital Signs Date Time Temp Pulse Resp B/P Pulse Ox O2 Delivery O2 Flow Rate FiO2 02/19/17 08:02 98.6 76 20 142/86 99 02/15/17 18:17 Room Air Intake and Output 02/18/17 02/18/17 02/19/17 15:00 23:00 07:00 Intake Total 50 ml 1680 ml 1950 ml Output Total 1450 ml 1050 ml Balance 50 ml 230 ml 900 ml Exam Constitutional: alert Eyes: nl conjunctiva ENMT: nl external ears & nose Neck: non-tender Respiratory: normal air movement Cardiovascular: No edema Gastrointestinal: soft Genitourinary - Male: other (Nephrostomy tube draining blood-tinged urine and the patient is voiding blood-tinged urine as well) Results Result Diagram: 02/17/17 0434 02/17/17 0434 Results 24 hrs Laboratory Tests Test 02/18/17 20:17 02/19/17 09:04 02/19/17 12:50 02/19/17 17:49 Bedside Glucose 138 137 136 131 Imaging Free Text/Dictation CT scan of the abdomen and pelvis: 1. Obstructive 6 mm calculus is present in the distal right ureter, causing mild hydroureteronephrosis. 2. Multiple bilateral nonobstructive renal calculi are seen as well. 3. Left-sided percutaneous nephrostomy catheter/ureteral stent is in place, with distal tip in the distal left ureter. There is mild left-sided hydronephrosis. Gas is present within left retroperitoneal soft tissues, presumably residual postoperative change. 4. Multiple bilateral benign appearing renal cysts are identified, several which appear hemorrhagic. 5. Small hiatal hernia is noted. 6. Mild retained fecal material may indicate constipation. Medications Medications Current Medications Ondansetron HCl 4 mg 4 mg Q6H PRN IV NAUSEA; Start 02/15/17 at 17:30 Ceftriaxone Sodium 50 ml @ 100 mls/hr Q24H IVPB Last administered on 12:55; Admin Dose 100 MLS/HR; Start 02/16/17 at 12:00 Sodium Chloride (1/2 NS) 1,000 ml @ 125 mls/hr Q8H IV Last administered on 10:56; Admin Dose 125 MLS/HR; Start 02/15/17 at 17:30 Aspirin (Halfprin) 81 mg DAILY PO Last administered on 02/19/17 09:07; Admin Dose 81 MG; Start 02/16/17 at 09:00 Atorvastatin Calcium (Lipitor) 80 mg QHS PO Last administered on 02/18/17 20: 13; Admin Dose 80 MG; Start 02/15/17 at 21:00 Cholecalciferol (Vitamin D) 5,000 unit DAILY PO Last administered on 09:09; Admin Dose 5,000 UNIT; Start 02/16/17 at 09:00 Furosemide (Lasix) 20 mg DAILY PO Last administered on 02/19/17 09:08; Admin Dose 20 MG; Start 02/16/17 at 09:00 Acetaminophen/ Hydrocodone Bitart ([place] (10/325)) 1 tab Q6 PRN PO PAIN Last administered on 02/17/17 09:17; Admin Dose 1 TAB; Start 02/15/17 at 18:00 Isosorbide Mononitrate (Imdur) 30 mg DAILY PO Last administered on 02/19/17 09:09; Admin Dose 30 MG; Start 02/16/17 at 09:00 Metoprolol Succinate (Toprol Xl) 100 mg BID PO Last administered on 02/19/17 09:08; Admin Dose 100 MG; Start 02/15/17 at 21:00 Amlodipine Besylate (Norvasc) 10 mg QHS PO Last administered on 02/18/17 20: 14; Admin Dose 10 MG; Start 02/15/17 at 21:00 Benazepril HCl (Lotensin) 40 mg QHS PO Last administered on 02/18/17 20:15; Admin Dose 40 MG; Start 02/15/17 at 21:00 Diagnostic Test (Pha) (Accu-Chek) 1 ea 02 XX ; Start 02/16/17 at 02:00 Miscellaneous Information 1 ea NOTE XX ; Start 02/15/17 at 19:00 Glucose (Glutose) 15 gm Q15M PRN PO DECREASED GLUCOSE; Start 02/15/17 at 19:00 Glucose (Glutose) 22.5 gm Q15M PRN PO DECREASED GLUCOSE; Start 02/15/17 at 19: 00 Dextrose (D50w Syringe) 25 ml Q15M PRN IV DECREASED GLUCOSE; Start 02/15/17 at 19:00 Dextrose (D50w Syringe) 50 ml Q15M PRN IV DECREASED GLUCOSE; Start 02/15/17 at 19:00 Glucagon (Glucagen) 1 mg Q15M PRN IM DECREASED GLUCOSE; Start 02/15/17 at 19: 00 Glucose (Glutose) 15 gm Q15M PRN BUCCAL DECREASED GLUCOSE; Start 02/15/17 at 19:00 Acetaminophen/ Hydrocodone Bitart ([place] (10/325)) 1 tab Q4H PRN PO PAIN Last administered on 02/19/17 17:02; Admin Dose 1 TAB; Start 02/17/17 at 13:00 MARTY LAMAS MD Feb 19, 2017 19:05
== END 2017-02-19 20:20 | disposition home or self-care (01) | DRG 661 ==
LOC: REC 10:29 → MS1 18:50
PROVIDERS: ADMIT Urology; ATTEND Urology
PROC: 0T9130Z Drainage of Left Kidney with Drainage Device, Percutaneous Approach (ICD-10-PCS; 2017-02-15)
PROC: BT1FZZZ Fluoroscopy of Left Kidney, Ureter and Bladder (ICD-10-PCS; 2017-02-15)
PROC: 0T9B80Z Drainage of Bladder with Drainage Device, Via Natural or Artificial Opening Endoscopic (ICD-10-PCS; 2017-02-15)
PROC: 0TC14ZZ Extirpation of Matter from Left Kidney, Percutaneous Endoscopic Approach (ICD-10-PCS; principal; 2017-02-15 12:30)
PROC: 0T778ZZ Dilation of Left Ureter, Via Natural or Artificial Opening Endoscopic (ICD-10-PCS; 2017-02-15 12:30)
DX: N20.0 Calculus of kidney (principal); I10 Essential (primary) hypertension; I25.10 Atherosclerotic heart disease of native coronary artery without angina pectoris; E10.9 Type 1 diabetes mellitus without complications; Z72.0 Tobacco use; Z95.5 Presence of coronary angioplasty implant and graft
CPT/HCPCS: 74000; 74176; 74425; 74430; 74475; 80048; 82962; 83036; 85025; 87086; 88300; J0696; J1170; J1644; J1815; J2250; J2274; J2405; J3010; Q9967

== ENCOUNTER → 2017-03-18 | Outpatient (CLI) | payer OTHER ==
[~2017-03-18] MED LIST changes: +AMLO1CAP15 PO; -AMLO1CAP2 PO; +CHOL500010 PO; -HYDR-3605 PO; +HYDR-902 PO; +IOHEXOL 300MG/ML 30 ML BTL ONE; -LISI20TA11 PO; +METO-336 PO; -METO-407 PO; -OMEP20CA16 PO; -VIT D3 PO
--- NOTE | 2017-03-18 16:25 | RADRPT ---
PROCEDURE: Fluoroscopic-guided left nephrostogram. Fluoroscopic-guided removal of left nephrostomy tube. CLINICAL INDICATION: Left flank pain. Left renal calculi. TECHNIQUE: Informed consent was obtained. The procedure, risks, benefits, complications and alternatives were explained to the patient. Risks including bleeding and infection were explained. The patient underst ood and was willing to proceed. A procedural pause was performed. The patient's name, date of , and procedure to be performed w ere verified. Using fluoroscopic guidance, 30 ml [id number] was injected into the existing left nephrostomy tube. Multiple digital images were obtained. Following this, the suture was cut and t he nephrostomy tube was removed with fluoroscopic guidance. A post procedure image was obtained. A dressing was applied. The patient tolerated procedure well. Fluoroscopy time is 0.1 minutes and 8 images were obtained. COMPARISON: CT scan of the abdomen and pelvis dated 02/19/2017 FINDINGS: The nephrostogram demonstrates the nephrostomy tube in satisfactory position within the left renal p lorenzo. The stent extends down the left ureter to the distal ureter region. There are multiple calculi in the left kidney superiorly and inferiorly. No calculi are present in the left ureter. The post procedure images demonstrate complete removal of the nephrostomy tube. IMPRESSION: 1. The nephrostogram demonstrates the tube in satisfactory position within the left renal pelvis. 2. Multiple calculi superiorly and inferiorly in the left kidney. No left ureteral calculus. 3. The nephrostomy tube was subsequently removed. RPTAT: QQ .Amadou Aranda MD, Date Time Electronically viewed and signed by .Amadou Aranda MD, MD on 03/18/2017 16:24 .R/
== END | disposition home or self-care (01) ==
LOC: RAD 09:13
PROVIDERS: ATTEND Urology
DX: N20.0 Calculus of kidney (principal)
CPT/HCPCS: 74425; Q9967